=== PATIENT | female | born 1980 | race Caucasian/White ===

== ENCOUNTER 2022-02-16 10:54 | Emergency (ER) | payer MEDICAID ==
[~2022-02-16] VITALS: Ht 160 cm; Wt 59.1 kg
[~2022-02-16 10:54] MED LIST: IBUP-1985 PO; NORE1PAT7 TD; PROP20TA6 PO
[2022-02-16 11:08] VITALS: BP 125/71
[2022-02-16] MEDS ORDERED: HYDROcodone/acetaminophen 5mg/325mg tablet PO ONE (11:55)
[2022-02-16] MEDS ORDERED: HYDR-3965 PO (12:06)
== END 2022-02-16 12:20 | disposition home or self-care (01) ==
LOC: ER 10:54
DX: S82.091A Other fracture of right patella, initial encounter for closed fracture (principal); M25.572 Pain in left ankle and joints of left foot; Z79.899 Other long term (current) drug therapy; W01.0XXA Fall on same level from slipping, tripping and stumbling without subsequent striking against object, initial encounter; Y93.89 Activity, other specified; Y92.89 Other specified places as the place of occurrence of the external cause; Y99.8 Other external cause status
CPT/HCPCS: 29505; 73560; 73630; 99284

== ENCOUNTER 2025-04-08 23:22 | Emergency (ER) | payer MEDICAID ==
[~2025-04-08] VITALS: Ht 160 cm; Wt 53.6 kg
[2025-04-08 23:25] VITALS: TEMP 96.3
[2025-04-08] MEDS: ibuprofen tablet 400 MG TABLET PO ONE (23:52)
[2025-04-08] MEDS: HYDROcodone/acetaminophen 10/325mg tab PO ONE (23:53)
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
--- NOTE | 2025-04-09 00:51 | RADIOLOGY REPORT ---
CLINICAL INDICATION: pain LEFT TECHNIQUE: DI SHOULDER, COMPLETE (MIN 2 VWS) Comparison: None FINDINGS/IMPRESSION: : Moderately displaced partially comminuted fracture of the humeral greater tuberosity. Normal glenohumeral and acromioclavicular articulation. Soft tissues are unremarkable.
[2025-04-09 01:12] LABS: MEAN PLATELET VOLUME 8.3 FL (7.4-10.4); RED CELL DISTRIBUTION WIDTH 13.7 % (11.5-14.5)
[2025-04-09] MEDS: ondansetron/PF 4mg/2ml inj IV ONE (01:14)
[2025-04-09] MEDS: normal saline 1000ML IV soln IVB ONE (01:19)
[2025-04-09] MEDS: morphine 4 MG/ML inj SYRINge IV PRN (01:23)
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
[2025-04-09 01:30] LABS: CREATININE 0.80 MG/DL (0.40-0.90); TOTAL CARBON DIOXIDE 21.8 MMOL/L (24-32)
[2025-04-09 01:31] LABS: ETHANOL 68 MG/DL (<10); eCRCL 76 ML/MIN; eGFR 79 ML/MIN
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
--- NOTE | 2025-04-09 02:05 | RADIOLOGY REPORT ---
CHEST RADIOGRAPH Indication: aloc Technique: Single frontal view of the chest was obtained COMPARISON: None FINDINGS: Lines and Tubes: None Lungs: Clear Pleura: No effusion. No pneumothorax. Cardiomediastinal contours: Unremarkable Bones: Unremarkable IMPRESSION: 1. No acute disease.
[2025-04-09] MEDS: propofol 10mg/ml 20ml vial IV ONE (03:08)
[2025-04-09] MEDS ORDERED: HYDR-3973 PO ×2 (03:12→04:40)
[2025-04-09] MEDS ORDERED: ONDA-243 PO (03:12)
--- NOTE | 2025-04-09 03:22 | RADIOLOGY REPORT ---
CLINICAL INDICATION: ARM PAIN TECHNIQUE: DIGITALCASSETTE, FOREARM_INC_ONE_JT, AP DI FOREARM,INCL.ONE JOINT Comparison: DI FOREARM,INCL.ONE JOINT on DOS: 04/09/25, DI FOREARM,INCL.ONE JOINT on DOS: 04/08/25 FINDINGS/IMPRESSION: : Partially comminuted mid to distal radial diaphyseal fracture has resulted in nearly 1 full shaft wit h dorsal displacement with preserved angulation. Soft tissues are unremarkable.
[2025-04-09 04:01] VITALS: BP 145/82; PULSE 94; RESP 15; O2SAT 97
[2025-04-16] MEDS ORDERED: HYDR-3972 PO (11:34)
== END 2025-04-09 04:07 | disposition home or self-care (01) ==
LOC: ER 23:22
DX: S52.321A Displaced transverse fracture of shaft of right radius, initial encounter for closed fracture (principal); S42.92XA Fracture of left shoulder girdle, part unspecified, initial encounter for closed fracture; S52.592A Other fractures of lower end of left radius, initial encounter for closed fracture; S92.252A Displaced fracture of navicular [scaphoid] of left foot, initial encounter for closed fracture; S09.90XA Unspecified injury of head, initial encounter; S80.211A Abrasion, right knee, initial encounter; V00.141A Fall from scooter (nonmotorized), initial encounter; Y93.89 Activity, other specified; Y92.89 Other specified places as the place of occurrence of the external cause; Y99.8 Other external cause status; Z79.899 Other long term (current) drug therapy
CPT/HCPCS: 26605; 36415; 70450; 71045; 72125; 73030; 73090; 73110; 73130; 80053; 80320; 85025; 96361; 96374; 96375; 96376; 99285; J2270; J2405; J2704; J7030; A4565; A4620

== ENCOUNTER 2025-04-19 07:08 | Day surgery (SDC) | payer MEDICAID ==
[~2025-04-19] VITALS: Ht 160 cm; Wt 62.9 kg
[2025-04-19] VITALS (8 sets, daily range): BP systolic 118–143; BP diastolic 58–82; PULSE 64–80; RESP 11–17; TEMP 98.2; O2SAT 98–100
[2025-04-19] MEDS: ceFAZolin 2gm/dext,iso 50mL 50 ML IV ONE (05:30)
[~2025-04-19 07:08] MED LIST changes: +HYDR-3972 PO; -NORE1PAT7 TD; -PROP20TA6 PO
[2025-04-19] MEDS: ringers solution, lacted 1,000 ML IV SCH (08:05)
[2025-04-19] MEDS ORDERED: cloNIDine hcl/PF 100mcg/ml inj ONE (09:05)
[2025-04-19] MEDS ORDERED: BUPIVAcaine 2.5mg/ml inj 50ml vial (contains preservative) ONE (09:14)
[2025-04-19] MEDS ORDERED: fentaNYL/PF 50MCG/1 ML 2ML syringe ONE (09:39)
[2025-04-19] MEDS ORDERED: midazolam 1 mg/ML 2ml injection ONE (09:39)
[2025-04-19] MEDS ORDERED: propofol inj 20 ML IV ONE (09:42)
[2025-04-19] MEDS ORDERED: ROPIVAcaine 0.5% (5mg/ml) 30ml vial ONE (09:43)
[2025-04-19] MEDS ORDERED: ondansetron/PF 4mg/2ml inj ONE (10:29)
[2025-04-19] MEDS ORDERED: dexamethasone sod phosphate 4mg/ml inj. ONE (10:29)
[2025-04-19] MEDS ORDERED: ringers solution, lacted 1,000 ML IV SCH (11:50)
[2025-04-19] MEDS ORDERED: HYDROmorphone/PF 0.2 MG/ML SYRINGE IV PRN ×2 (11:50)
[2025-04-19] MEDS ORDERED: ondansetron/PF 4mg/2ml inj IV PRN (11:50)
[2025-04-19] MEDS ORDERED: acetaminophen 1,000mg/100ml IV 100 ML IV PRN (11:50)
[2025-04-19] MEDS ORDERED: labetalol 20mg/4ml (5mg/ml) syringe IV PRN (11:50)
[2025-04-19] MEDS ORDERED: morphine 4 MG/ML inj SYRINge IV PRN (11:50)
[2025-04-19] MEDS ORDERED: hydrALAZINE 20mg/ml inj. IV PRN (11:50)
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
== END 2025-04-19 11:56 | disposition home or self-care (01) ==
LOC: PAS 07:08
PROVIDERS: ATTEND Orthopaedic Surgery Hand Surgery
DX: S52.331A Displaced oblique fracture of shaft of right radius, initial encounter for closed fracture (principal); V29.888A Rider (driver) (passenger) of other motorcycle injured in other specified transport accidents, initial encounter; Y93.89 Activity, other specified; Y92.89 Other specified places as the place of occurrence of the external cause; Y99.8 Other external cause status; G89.18 Other acute postprocedural pain; Z79.899 Other long term (current) drug therapy; Z90.49 Acquired absence of other specified parts of digestive tract; Z98.51 Tubal ligation status
CPT/HCPCS: 25515; 64417; 82948; A6222; C1713; J0735; J1100; J2250; J2405; J2704; J2795; J3010; J7030; J7120; Z7506; Z7508; Z7512; A4215; A4565; A4618; A6449; A7000; J3490